=== PATIENT | female | born 1965 | race Caucasian/White ===

== ENCOUNTER 2016-12-03 09:01 | Outpatient (CLI) ==
[2014-10-06 18:59] VITALS: BMI 30.7
--- NOTE | 2016-12-11 08:55 | MAMMO ---
EXAM: Bilateral digital screening mammogram. History: Screening Comparison: Bilateral mammogram 10/20/2015 Findings: MLO and CC views of bilateral breasts demonstrate scattered fibroglandular breast parench yma. Stable benign bilateral breast calcifications. There are no dominant masses, no suspicious mi crocalcifications and no architectural distortions. Biopsy clip again seen within the right breast Impression: Benign stable mammogram. Recommend followup routine screening mammography in 1 year. BIRADS 2
== END 2016-12-03 09:02 | disposition home or self-care (01) ==
LOC: RAD 09:01
PROVIDERS: ATTEND Pediatrics
DX: Z12.31 Encounter for screening mammogram for malignant neoplasm of breast (principal)

== ENCOUNTER 2017-12-11 08:43 | Outpatient (CLI) ==
[2014-10-06 18:59] VITALS: BMI 30.7
--- NOTE | 2017-12-12 12:15 | MAMMO ---
EXAM: Digital screening mammogram with tomosynthesis HISTORY: Screening COMPARISON: 12/03/2016 FINDINGS: Digital MLO and CC views of the right and left breast were performed. Tomosynthesis was performed. Computer aided detection utilized. There are scattered fibroglandular densities. There is an asymmetry in the right central/lateral breast on the CC view posterior depth. There is a mass in the medial inferior left breast anterior depth. IMPRESSION: Right breast asymmetry and left breast mass. Bilateral diagnostic mammogram and possib le ultrasound recommended for further evaluation. BIRADS category 0, incomplete
== END 2017-12-11 08:44 | disposition home or self-care (01) ==
LOC: RAD 08:43
PROVIDERS: ATTEND Pediatrics
DX: Z12.31 Encounter for screening mammogram for malignant neoplasm of breast (principal)
CPT/HCPCS: 77067

== ENCOUNTER 2019-01-08 09:46 | Outpatient (CLI) ==
[2014-10-06 18:59] VITALS: BMI 30.7
--- NOTE | 2019-01-08 12:07 | MAMMO ---
EXAM: Digital screening mammogram with tomosynthesis HISTORY: Screening COMPARISON: 12/11/2017 FINDINGS: Digital MLO and CC views of the right and left breast were performed. Tomosynthesis was performed. Computer aided detection utilized. There are scattered fibroglandular densities. There is an asymmetry in the right central/lateral breast slightly superior, seen on the CC and MLO view. There is a mass in the medial inferior left breast anterior depth. IMPRESSION: Right breast asymmetry and left breast mass. Recommend right and left breast diagnostic mammogram and right and left breast ultrasound for further evaluation. BIRADS category 0, further evaluation recommended
== END 2019-01-08 09:47 | disposition home or self-care (01) ==
LOC: RAD 09:46
PROVIDERS: ATTEND Pediatrics
DX: Z12.31 Encounter for screening mammogram for malignant neoplasm of breast (principal)